=== PATIENT | female | born 1970 | race Caucasian/White ===

== ENCOUNTER 2025-02-22 08:47 | Emergency (ER) | payer OTHER, SELFPAY ==
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
[2025-02-22 08:58] VITALS: BP 124/78; PULSE 71; RESP 16; TEMP 36.6; O2SAT 99; BMI 20.5
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
--- OUTSIDE RECORDS SUMMARY | 2025-02-22 09:48 | XMS_ITS | Clinical Summary ---
Author Organization [facility] Address [address] [place] [address] Care Team Providers Care Finish Remover Name Role Phone Allan Arambula Primary Care Provid er Social History Tobacco Use Types Packs/Day Years Used Date Smoking Tobacco: Never Assessed Comments Unknown Sex and Gender Information Value Date Recorded Sex Assigned at Not on file Legal Sex Female 12:00 AM EDT Gender Identity Not on file Sexual Orientation Not on file Plan of Treatment Health Maintenance Due Date Last Done Comments Hepatitis C Screening 1970 Pap Smear 1986 DTaP/Tdap/Td (1 - Tdap) 1988 Hep B (1 of 3 - 19+ 3-dose series) 1989 Mammogram/Breast Imaging 2010 Pneumococcal 50+ years (1 of 1 - PCV) 2020 Zoster (Shingrix) (1 of 2) 2020 COVID-19 Vaccine (2023-2 5 season) 2024 Influenza (#1) 2024 HPV Vaccine Aged Out No longer eligi ble based on patient's age to complete this topic Hep A Aged Out No longer eligi ble based on patient's age to complete this topic Hib Aged Out No longer eligi ble based on patient's age to complete this topic Meningococcal ACWY Aged Out No longer eligible based on patient's age to complete this topic Insurance [facility] [place] [place] [address] [employer]FS [facility] Care Teams Finish Remover Relationship Specialty Start Date End Date Allan Arambula [facility] [address] [place] [id number] PCP - General 04/16/08
[2025-02-22 10:53] VITALS: BP 123/70; PULSE 65; RESP 14; TEMP 36.6; O2SAT 99
--- NOTE | 2025-02-22 10:55 | MHC.EDTECH ---
Patient has pain 6/10, ice bag was given.
[2025-02-22 11:17] VITALS: BP 123/70; PULSE 65; RESP 14; TEMP 36.6; O2SAT 99
== END 2025-02-22 11:20 | disposition home or self-care (01) ==
PROVIDERS: Emergency Provider Emergency Medicine Emergency Medical Services; PCP Family Medicine
DX: S02.2XXA Fracture of nasal bones, initial encounter for closed fracture (principal); R51.9 Headache, unspecified; Y04.8XXA Assault by other bodily force, initial encounter; Y93.9 Activity, unspecified; Y92.9 Unspecified place or not applicable; Y99.0 Civilian activity done for income or pay
CPT/HCPCS: 70450; 70486; 99284

== ENCOUNTER → 2025-02-22 09:28 | Outpatient (BNV) | payer OTHER, SELFPAY | PROVIDERS: Emergency Provider Emergency Medicine Emergency Medical Services; PCP Family Medicine; Visit Provider Radiology Diagnostic Radiology | DX: M26.643 Arthritis of bilateral temporomandibular joint (principal); J32.0 Chronic maxillary sinusitis; S09.90XA Unspecified injury of head, initial encounter | CPT/HCPCS: 70450; 70486 ==